=== PATIENT | female | born 1980 | race African-American/Black ===

== ENCOUNTER 2017-05-30 03:56 | Emergency (ER) | payer OTHER ==
[~2017-05-30] VITALS: Ht 149.9 cm; Wt 92.1 kg
[~2017-05-30 03:56] MED LIST: ACET325T9 PO; ACET500T33 PO; AMOX875T PO; BENZ100C PO; GUAI600T47 PO; HYDR25CA75 PO; IBUP-1007 PO; IBUP-1060 PO; LABE100T3 PO; LABE5VIA14 PO; LISI10TA2 PO; LOSA25TA4 PO; MULT-208 PO; OMEP20CA9 PO; OSEL75CA PO; OXYC-323 PO; POLY17PO29 PO; PRED50TA PO
[2017-05-30] MEDS ORDERED: ASPIRIN CHEWABLE 81 MG TABLET. PO ONE (04:15)
[2017-05-30 04:19] LABS: BASO # 0.1 x10^3/uL (0.0-0.2); BASO % 1 % (0-3); EOS % 2 % (0-3); HEMATOCRIT 40.2 % (36.0-47.0); HEMOGLOBIN 13.2 g/dL (12.0-15.5); LYMPH # 2.4 x10^3/uL (1.0-4.8); LYMPH % 46 % (24-48); MEAN CORPUSCULAR HEMOGLOBIN 28 pg (25-35); MEAN CORPUSCULAR HGB CONC 33 g/dL (31-37); MEAN CORPUSCULAR VOLUME 85 fL (79-100); MONO % 8 % (0-9); NEUT % 42 % (31-73); PLATELET COUNT 205 x10^3/uL (140-400); RED BLOOD COUNT 4.73 x10^6/uL (3.50-5.40); RED CELL DISTRIBUTION WIDTH 14.5 % (11.5-14.5); WHITE BLOOD COUNT 5.1 x10^3/uL (4.0-11.0)
--- NOTE | 2017-05-30 04:31 | PHYS DOC ---
Past Medical History Past Medical History: Fibromyalgia, Hypertension, Other Additional Past Medical Histor: sleep apnea, panic attacks Past Surgical History: Cholecystectomy, , Hysterectomy Additional Past Surgical Histo: uterine ablation Alcohol Use: None Drug Use: None Adult General Chief Complaint Chief Complaint: [facility] HPI Patient is a 36 year old female with past medical history of anxiety, hypertension and fibromyalgia presents with complaints of sided chest pain that started at approximately 1 hour and 15 minutes ago. The patient says the pain is a 1 point on her left upper chest and then another point on the side of the chest. There is no radiation, no associated symptoms like nausea, vomiting, diaphoresis or shortness of breath. The patient has been no compliant with her blood pressure medications. No history of trauma. No recent illnesses, no rashes , no fevers or chills. Review of Systems Review of Systems Constitutional: Denies fever or chills [] HENT: Denies neck pain Respiratory: Denies cough or shortness of breath [] Cardiovascular: No additional information not addressed in HPI [] GI: Denies abdominal pain, nausea, vomiting Musculoskeletal: Denies back pain or joint pain [] Integument: Denies rash or skin lesions [] Neurologic: Denies headache, focal weakness or sensory changes [] All systems are reviewed and found to be negative unless otherwise stated Current Medications Current Medications Current Medications Medications (Trade) Dose Ordered Sig/Umm Start Time Stop Time Status Last Admin Dose Admin Aspirin (Children'S Aspirin) 324 mg 1X ONCE 05/30/17 04:15 05/30/17 04:16 DC 05/30/17 04:45 324 MG Hydrochlorothiazide (Hydrodiuril) 25 mg 1X ONCE 05/30/17 05:00 05/30/17 05:01 DC Ibuprofen (Motrin) 400 mg 1X ONCE 05/30/17 05:15 05/30/17 05:16 DC 05/30/17 05:47 400 MG Lisinopril (Prinivil) 20 mg 1X ONCE 05/30/17 05:00 05/30/17 05:01 DC Metoprolol Tartrate (Lopressor) 25 mg 1X ONCE 05/30/17 05:00 05/30/17 05:01 DC Allergies Allergies Allergies Coded Allergies Type Severity Reaction Last Updated Verified No Known Drug Allergies 08/27/15 No Physical Exam Physical Exam Constitutional: Well developed, well nourished, no acute distress, non-toxic appearance. [] HENT: Normocephalic, atraumatic, nose normal. [] Eyes: EOMI, conjunctiva normal, no discharge. [] Neck: Normal range of motion, no tenderness, supple, no stridor. No LAD, no meningeal signs, no JVD Cardiovascular:Heart rate regular rhythm, no murmur, equal pulses, normal perfusion Lungs & Thorax: Bilateral breath sounds clear to auscultation, no tachypnea Abdomen: Bowel sounds normal, soft, no tenderness, no masses, no pulsatile masses. [] Skin: Warm, dry, no erythema, no rash. [] Back: No tenderness, no CVA tenderness. [] Extremities: No tenderness, no cyanosis, no clubbing, ROM intact, no edema. No signs of DVT Neurologic: Alert and oriented X 3, normal motor function, normal sensory function, no focal deficits noted. Patient ambulates with normal gait without assistance Psychologic: Affect normal, judgement normal, mood normal. [] Current Patient Data Vital Signs Vital Signs Date Time Temp Pulse Resp B/P (MAP) Pulse Ox O2 Delivery O2 Flow Rate FiO2 05/30/17 06:15 72 128/79 (95) 99 Room Air 05/30/17 04:02 99.3 18 99.3 Lab Values Laboratory Tests Test 05/30/17 04:01 05/30/17 04:25 05/30/17 06:43 White Blood Count 5.1 x10^3/uL (4.0-11.0) Red Blood Count 4.73 x10^6/uL (3.50-5.40) Hemoglobin 13.2 g/dL (12.0-15.5) Hematocrit 40.2 % (36.0-47.0) Mean Corpuscular Volume 85 fL (79-100) Mean Corpuscular Hemoglobin 28 pg (25-35) Mean Corpuscular Hemoglobin Concent 33 g/dL (31-37) Red Cell Distribution Width 14.5 % (11.5-14.5) Platelet Count 205 x10^3/uL (140-400) Neutrophils (%) (Auto) 42 % (31-73) Lymphocytes (%) (Auto) 46 % (24-48) Monocytes (%) (Auto) 8 % (0-9) Eosinophils (%) (Auto) 2 % (0-3) Basophils (%) (Auto) 1 % (0-3) Neutrophils # (Auto) 2.1 x10^3uL (1.8-7.7) Lymphocytes # (Auto) 2.4 x10^3/uL (1.0-4.8) Monocytes # (Auto) 0.4 x10^3/uL (0.0-1.1) Eosinophils # (Auto) 0.1 x10^3/uL (0.0-0.7) Basophils # (Auto) 0.1 x10^3/uL (0.0-0.2) D-Dimer (Tran) 1.13 ug/mlFEU (0.00-0.50) H Sodium Level 138 mmol/L (136-145) Potassium Level 3.9 mmol/L (3.5-5.1) Chloride Level 104 mmol/L (98-107) Carbon Dioxide Level 25 mmol/L (21-32) Anion Gap 9 (6-14) Blood Urea Nitrogen 11 mg/dL (7-20) Creatinine 0.8 mg/dL (0.6-1.0) Estimated GFR (Cockcroft-Gault) 98.2 Glucose Level 108 mg/dL (70-99) H Calcium Level 9.1 mg/dL (8.5-10.1) Troponin I Quantitative < 0.017 ng/mL (0.000-0.055) Serum Test, Qualitative Negative (NEG) Urine Opiates Screen Neg (NEG) Urine Methadone Screen Neg (NEG) Urine Barbiturates Neg (NEG) Urine Phencyclidine Screen Neg (NEG) Urine Amphetamine/Methamphetamine Neg (NEG) Urine Benzodiazepines Screen Neg (NEG) Urine Cocaine Screen Neg (NEG) Urine Cannabinoids Screen Neg (NEG) Urine Ethyl Alcohol Neg (NEG) POC Troponin I 0.00 ng/ml (<0.08) Laboratory Tests 05/30/17 04:01 Laboratory Tests 05/30/17 04:01 EKG EKG 84, sinus rhythm, no STEMI, EP interpretation at 0405 Radiology/Procedures Radiology/Procedures [] Course & Med Decision Making Course & Med Decision Making Pertinent Labs and Imaging studies reviewed. (See chart for details) 0658 pt in nad. Despite the small elevation in d-dimer I do not believe the patient has a PE clinically. the pt also clinically does not appear to have a dissection. Pt pain has resolved while in the ED and her VS improved without intervention. Pt is relaxed and in no distress awaiting second ekg and second tpn. Istat negative. 2nd ekg 65, SR, no stemi. EP interpretation at 0701 [] Baron Disclaimer Dragon Disclaimer This electronic medical record was generated, in whole or in part, using a voice recognition dictation system. Departure Departure Impression: Primary Impression: Chest pain of uncertain etiology Disposition: HOME, SELF-CARE Condition: IMPROVED Referrals: NO PCP (PCP) Patient Instructions: Chest Pain (Nonspecific) Additional Instructions: you told us you have a pcp, please follow up with them in one day for recheck and re-evaluation. if your symptoms worsen or new concerning symptoms develop please return to the ED immediately. Scripts Sucralfate (CARAFATE) 1 Gm/10 Ml Oral.susp 10 ML PO BID, #120 ML 1 Refill Prov: Gabriella ARMIJO MD 05/30/17 Gabriella ARMIJO MD May 30, 2017 04:31
[2017-05-30 04:37] LABS: CALCIUM 9.1 mg/dL (8.5-10.1); CREATININE 0.8 mg/dL (0.6-1.0); GFR 98.2; POTASSIUM 3.9 mmol/L (3.5-5.1)
[2017-05-30 04:44] LABS: BARBITURATES NEG (NEG); BENZODIAZEPINES NEG (NEG); CANNABINOIDS NEG (NEG); COCAINE NEG (NEG); METHADONE NEG (NEG); OPIATES NEG (NEG); PHENCYCLIDINE NEG (NEG)
[2017-05-30 04:45] LABS: NEG OBC SER NEG; POS OBC SER POS
[2017-05-30] MEDS ORDERED: LISINOPRIL 10 MG TABLET PO ONE (05:00)
[2017-05-30] MEDS ORDERED: METOPROLOL TART IMMED RELEASE 25 MG TABLET. PO ONE (05:00)
[2017-05-30] MEDS ORDERED: hydroCHLOROthiazide 25 MG TABLET PO ONE (05:00)
[2017-05-30] MEDS ORDERED: IBUPROFEN 400 MG TABLET. PO ONE (05:15)
--- NOTE | 2017-05-30 06:23 | EKG ---
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
[2017-05-30 06:45] VITALS: BP 143/93
[2017-05-30] MEDS ORDERED: SUCR1ORA5 PO (07:07)
--- NOTE | 2017-05-30 07:11 | EKG ---
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
--- NOTE | 2017-05-30 07:13 | RAD ---
Chest, 2 views, 05/30/2017: History: Chest pain The heart size and pulmonary vascularity are normal. No pulmonary infiltrates are seen. There is no evidence of pleural fluid. Mild spurring is present in the spine. IMPRESSION: No acute cardiopulmonary abnormality is detected.
== END 2017-05-30 07:18 | disposition home or self-care (01) ==
LOC: ER 03:56
DX: R07.89 Other chest pain (principal); I10 Essential (primary) hypertension; M79.7 Fibromyalgia; G47.30 Sleep apnea, unspecified; F41.9 Anxiety disorder, unspecified; Z90.710 Acquired absence of both cervix and uterus; Z90.49 Acquired absence of other specified parts of digestive tract; Z98.890 Other specified postprocedural states
CPT/HCPCS: 36415; 71020; 80048; 80307; 84484; 84703; 85027; 85379; 93005; 99285-25; G0479

== ENCOUNTER 2017-06-30 02:58 | Emergency (ER) | payer OTHER ==
[~2017-06-30] VITALS: Ht 149.9 cm; Wt 93.9 kg
[~2017-06-30 02:58] MED LIST changes: +SUCR1ORA5 PO
[2017-06-30 03:19] VITALS: BP 147/89
[2017-06-30 04:00] LABS: BASO # 0.1 x10^3/uL (0.0-0.2); BASO % 1 % (0-3); EOS % 1 % (0-3); HEMATOCRIT 38.5 % (36.0-47.0); HEMOGLOBIN 12.8 g/dL (12.0-15.5); LYMPH # 1.2 x10^3/uL (1.0-4.8); LYMPH % 25 % (24-48); MEAN CORPUSCULAR HEMOGLOBIN 28 pg (25-35); MEAN CORPUSCULAR HGB CONC 33 g/dL (31-37); MEAN CORPUSCULAR VOLUME 84 fL (79-100); MONO % 6 % (0-9); NEUT % 67 % (31-73); PLATELET COUNT 216 x10^3/uL (140-400); RED BLOOD COUNT 4.57 x10^6/uL (3.50-5.40); RED CELL DISTRIBUTION WIDTH 15.1 % (11.5-14.5); WHITE BLOOD COUNT 4.7 x10^3/uL (4.0-11.0)
[2017-06-30] MEDS ORDERED: diphenhydrAMINE 50 MG/ML VIAL IVP ONE (04:00)
[2017-06-30] MEDS ORDERED: MECLIZINE HCL 12.5 MG TABLET. PO ONE (04:00)
[2017-06-30] MEDS ORDERED: IV NORMAL SALINE 1000ML BAG 1,000 ML IV ONE (04:00)
[2017-06-30 04:09] LABS: CALCIUM 9.1 mg/dL (8.5-10.1); CREATININE 0.8 mg/dL (0.6-1.0); GFR 98.2; POTASSIUM 3.6 mmol/L (3.5-5.1)
--- NOTE | 2017-06-30 04:21 | RAD ---
RS Compliance Statement: One or more of the following individualized dose reduction techniques were utilized for this examination: 1. Automated exposure control 2. Adjustment of the mA and/or kV according to patient size 3. Use of iterative reconstruction technique CT HEAD WITHOUT CONTRAST History: dizziness , new onset vertigo. Comparison: None. Procedure: Axial images are obtained of the head from the skull base through the vertex without IV contrast. Findings: The ventricles and sulci are normal for the patient's age. No mass-effect, midline shift, hemorrhage, extra-axial fluid collection, or obvious acute infarction is identified. Basilar cisterns are patent. Bone windows demonstrate no acute calvarial abnormality. The visualized paranasal sinuses are clear. Mastoid air cells are well aerated. IMPRESSION: No acute intracranial abnormality. Electronically signed by: Ludwig Trent MD (06/30/2017 4:17 AM) [facility]
[2017-06-30] MEDS ORDERED: MECL12.52 PO (05:24)
--- NOTE | 2017-06-30 05:25 | PHYS DOC ---
Past Medical History Past Medical History: Fibromyalgia, Hypertension, Other Additional Past Medical Histor: sleep apnea, panic attacks Past Surgical History: Cholecystectomy, , Hysterectomy Additional Past Surgical Histo: uterine ablation Alcohol Use: None Drug Use: None Adult General Chief Complaint Chief Complaint: NAUSEA/VOMITING/DIARRHA HPI HPI 36-year-old female with no significant past medical history now presents to the emergency department after sudden onset of dizziness with room spinning. Patient was doing her activities of daily living this evening when she suddenly felt very dizzy. Room felt like it was moving and she was having difficulties with her balance. Patient experienced nausea and vomiting. It's improved when she stays still and worse when she moves her head and especially when she lays down. Patient has not taken any medication and she has never had symptoms like this before. She's never been told she had a brain tumor or experienced inner ear problems. Patient is otherwise asymptomatic and has had no prodromal illness recently. Review of Systems Review of Systems Constitutional: Denies fever or chills [] Eyes: Denies change in visual acuity, redness, or eye pain [] HENT: Denies nasal congestion or sore throat [] Respiratory: Denies cough or shortness of breath [] Cardiovascular: No additional information not addressed in HPI [] GI: Denies abdominal pain, nausea, vomiting, bloody stools or diarrhea [] : Denies dysuria or hematuria [] Musculoskeletal: Denies back pain or joint pain [] Integument: Denies rash or skin lesions [] Neurologic: Denies headache, focal weakness or sensory changes [] Endocrine: Denies polyuria or polydipsia [] Current Medications Current Medications Current Medications Medications (Trade) Dose Ordered Sig/Umm Start Time Stop Time Status Last Admin Dose Admin Diphenhydramine HCl (Benadryl) 25 mg 1X ONCE 06/30/17 04:00 06/30/17 04:01 DC 06/30/17 03:54 25 MG Meclizine HCl (Antivert) 25 mg 1X ONCE 06/30/17 04:00 06/30/17 04:01 DC 06/30/17 03:54 25 MG Sodium Chloride 1,000 ml @ 999 mls/hr 1X ONCE 06/30/17 04:00 06/30/17 05:00 DC 06/30/17 03:53 999 MLS/HR Allergies Allergies Allergies Coded Allergies Type Severity Reaction Last Updated Verified No Known Drug Allergies 08/27/15 No Physical Exam Physical Exam Well-appearing patient no acute distress remaining still with eyes closed. Dizziness reproducible with head movement and positional changes. Patient has a nonfocal neurologic exam and remainder of exam is benign Constitutional: Well developed, well nourished, no acute distress, non-toxic appearance. [] HENT: Normocephalic, atraumatic, bilateral external ears normal, oropharynx moist, no oral exudates, nose normal. [] Eyes: PERRLA, EOMI, conjunctiva normal, no discharge. [] Neck: Normal range of motion, no tenderness, supple, no stridor. [] Cardiovascular:Heart rate regular rhythm, no murmur [] Lungs & Thorax: Bilateral breath sounds clear to auscultation [] Abdomen: Bowel sounds normal, soft, no tenderness, no masses, no pulsatile masses. [] Skin: Warm, dry, no erythema, no rash. [] Back: No tenderness, no CVA tenderness. [] Extremities: No tenderness, no cyanosis, no clubbing, ROM intact, no edema. [] Neurologic: Alert and oriented X 3, normal motor function, normal sensory function, no focal deficits noted. [] Psychologic: Affect normal, judgement normal, mood normal. [] Current Patient Data Vital Signs Vital Signs Date Time Temp Pulse Resp B/P (MAP) Pulse Ox O2 Delivery O2 Flow Rate FiO2 06/30/17 03:19 98.4 67 18 147/89 (108) 100 Room Air 98.4 Lab Values Laboratory Tests Test 06/30/17 03:25 White Blood Count 4.7 x10^3/uL (4.0-11.0) Red Blood Count 4.57 x10^6/uL (3.50-5.40) Hemoglobin 12.8 g/dL (12.0-15.5) Hematocrit 38.5 % (36.0-47.0) Mean Corpuscular Volume 84 fL (79-100) Mean Corpuscular Hemoglobin 28 pg (25-35) Mean Corpuscular Hemoglobin Concent 33 g/dL (31-37) Red Cell Distribution Width 15.1 % (11.5-14.5) H Platelet Count 216 x10^3/uL (140-400) Neutrophils (%) (Auto) 67 % (31-73) Lymphocytes (%) (Auto) 25 % (24-48) Monocytes (%) (Auto) 6 % (0-9) Eosinophils (%) (Auto) 1 % (0-3) Basophils (%) (Auto) 1 % (0-3) Neutrophils # (Auto) 3.2 x10^3uL (1.8-7.7) Lymphocytes # (Auto) 1.2 x10^3/uL (1.0-4.8) Monocytes # (Auto) 0.3 x10^3/uL (0.0-1.1) Eosinophils # (Auto) 0.0 x10^3/uL (0.0-0.7) Basophils # (Auto) 0.1 x10^3/uL (0.0-0.2) Sodium Level 140 mmol/L (136-145) Potassium Level 3.6 mmol/L (3.5-5.1) Chloride Level 103 mmol/L (98-107) Carbon Dioxide Level 26 mmol/L (21-32) Anion Gap 11 (6-14) Blood Urea Nitrogen 16 mg/dL (7-20) Creatinine 0.8 mg/dL (0.6-1.0) Estimated GFR (Cockcroft-Gault) 98.2 Glucose Level 109 mg/dL (70-99) H Calcium Level 9.1 mg/dL (8.5-10.1) Troponin I Quantitative < 0.017 ng/mL (0.000-0.055) Laboratory Tests 06/30/17 03:25 Laboratory Tests 06/30/17 03:25 EKG EKG EKG Normal sinus rhythm at 76 normal axis no STEMI [] interpreted by me Radiology/Procedures Radiology/Procedures Chest x-ray no acute disease interpreted by me [] Course & Med Decision Making Course & Med Decision Making Pertinent Labs and Imaging studies reviewed. (See chart for details) Signs and symptoms consistent with peripheral vertigo and well-appearing patient his symptoms have resolved after treatment. Full workup including CT EKG chest x-ray and labs all unremarkable. No further workup or treatment indicated. Patient feels well and wants to go home. She agrees that outpatient follow-up, prescription for meclizine dispensed, and strict return precautions given [] Erma Disclaimer Dragon Disclaimer This electronic medical record was generated, in whole or in part, using a voice recognition dictation system. Departure Departure Impression: Primary Impression: Vertigo Additional Impression: Dizziness Disposition: 01 HOME, SELF-CARE Condition: IMPROVED Referrals: NO PCP (PCP) Patient Instructions: Vertigo Additional Instructions: You have vertigo. This is dizziness from dysfunction of the inner ear. Take meclizine as prescribed as needed. Be sure to take appropriate precautions if you're feeling dizzy including not driving operating machinery or putting yourself in any situation that might create danger to you or others. A very full workup today including labs CT of the head chest x-ray and EKG are all unremarkable. Follow-up with your doctor tomorrow and return immediately for new severe worsening symptoms Scripts Meclizine Hcl (MECLIZINE HCL) 12.5 Mg Tablet 1 TAB PO Q6HRS for dizziness, #30 TAB Prov: PHAN KAPLAN MD 06/30/17 Problem Qualifiers PHAN KAPLAN MD Jun 30, 2017 05:25
--- NOTE | 2017-06-30 07:18 | EKG ---
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
--- NOTE | 2017-06-30 07:32 | RAD ---
Exam performed: One view chest. Indication: DIZZINESS Date of Service: 06/30/2017 5:45 AM Comparison: None available two-view chest from 06/23/16. Single AP upright portable view chest findings: Cardiomediastinal silhouette is within limits of normal. No acute infiltrates, effusion or pneumothorax is detected. The bony structures are normal. Impression: No acute cardiopulmonary process is detected.
== END 2017-06-30 05:33 | disposition home or self-care (01) ==
LOC: ER 02:58
DX: R42 Dizziness and giddiness (principal); R11.2 Nausea with vomiting, unspecified; M79.7 Fibromyalgia; I10 Essential (primary) hypertension; G47.30 Sleep apnea, unspecified
CPT/HCPCS: 36415; 70450; 71010; 80048; 84484; 85025; 93005; 96361; 96374; 99285; J1200; J7030; J8597

== ENCOUNTER 2017-10-09 21:54 | Emergency (ER) | payer OTHER ==
[~2017-10-09] VITALS: Ht 5.1 cm; Wt 93.9 kg
[~2017-10-09 21:54] MED LIST changes: +MECL12.52 PO
--- NOTE | 2017-10-09 22:00 | PHYS DOC ---
Past Medical History Past Medical History: Fibromyalgia, Hypertension, Other Additional Past Medical Histor: sleep apnea, panic attacks Past Surgical History: Cholecystectomy, , Hysterectomy Additional Past Surgical Histo: uterine ablation Alcohol Use: None Drug Use: None Adult General Chief Complaint Chief Complaint: LOWER EXTREMITY SWELLING [facility] HPI Patient is a 37 year old -[place] female who presents with left leg pain and swelling. She states this started around 6:00 tonight. It comes and goes it's in the left thigh in the posterior aspect. She says it looks swollen to her also. She denies any shortness of breath fevers chills nausea vomiting. She also complains about intermittent bilateral posterior rib pain for the last 6 months it comes on it can last all day long and he could go away by itself. She denies any shortness of breath associated with this. 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 Review of Systems Review of Systems Constitutional: Denies fever or chills [] Eyes: Denies change in visual acuity, redness, or eye pain [] HENT: Denies nasal congestion or sore throat [] Respiratory: Denies cough or shortness of breath [] Cardiovascular: No additional information not addressed in HPI [] GI: Denies abdominal pain, nausea, vomiting, bloody stools or diarrhea [] : Denies dysuria or hematuria [] Musculoskeletal: Denies back pain or positive for left leg swelling Integument: Denies rash or skin lesions [] Neurologic: Denies headache, focal weakness or sensory changes [] Endocrine: Denies polyuria or polydipsia [] All other systems were reviewed and found to be within normal limits, except as documented in this note. Allergies Allergies Allergies Coded Allergies Type Severity Reaction Last Updated Verified No Known Drug Allergies 08/27/15 No Physical Exam Physical Exam Constitutional: Well developed, well nourished, no acute distress, non-toxic appearance. [] HENT: Normocephalic, atraumatic, bilateral external ears normal, oropharynx moist, no oral exudates, nose normal. [] Eyes: PERRLA, EOMI, conjunctiva normal, no discharge. [] Neck: Normal range of motion, no tenderness, supple, no stridor. [] Cardiovascular:Heart rate regular rhythm, no murmur [] Lungs & Thorax: Bilateral breath sounds clear to auscultation [] Abdomen: Bowel sounds normal, soft, no tenderness, no masses, no pulsatile masses. [] Skin: Warm, dry, no erythema, no rash. [] Back: No tenderness, no CVA tenderness. [] Extremities: No tenderness, no cyanosis, no clubbing, ROM intact, no edema. [] Neurologic: Alert and oriented X 3, normal motor function, normal sensory function, no focal deficits noted. [] Psychologic: Affect normal, judgement normal, mood normal. [] Current Patient Data Vital Signs Vital Signs Date Time Temp Pulse Resp B/P (MAP) Pulse Ox O2 Delivery O2 Flow Rate FiO2 10/09/17 22:16 98.5 84 20 148/96 (113) 100 Room Air 98.5 Lab Values Laboratory Tests Test 10/09/17 22:10 Urine Collection Type Unknown Urine Color Yellow Urine Clarity Clear Urine pH 6.0 Urine Specific [place] 1.015 Urine Protein Negative mg/dL (NEG-TRACE) Urine Glucose (UA) Negative mg/dL (NEG) Urine Ketones (Stick) Negative mg/dL (NEG) Urine Blood Negative (NEG) Urine Nitrite Negative (NEG) Urine Bilirubin Negative (NEG) Urine Urobilinogen Dipstick 0.2 mg/dL (0.2 mg/dL) Urine Leukocyte Esterase Negative (NEG) Urine RBC 0 /HPF (0-2) Urine WBC 0 /HPF (0-4) Urine Squamous Epithelial Cells Mod /LPF Urine Bacteria Few /HPF (0-FEW) Urine Mucus Slight /LPF Urine Test Negative (NEG) EKG EKG [] Radiology/Procedures Radiology/Procedures 2 views chest x-ray does not show any focal consolidations, bony abnormality's, pneumothorax, as interpreted by me. [facility] [address] [place], [place] [id number] IMAGING REPORT Signed PATIENT: ANIRUDH GUARDADO ACCOUNT: [id number] : 1980 LOCATION: ER AGE: 37 SEX: F EXAM STATUS: DEP ER ORD. PHYSICIAN: JENNIFER ARENAS MD REASON: swelling, pain PROCEDURE: VENOUS LOWER EXTREMITY LEFT Left lower extremity venous duplex study 10/09/2017 Clinical History: Left leg pain. Technique: Using a combination of real time ultrasound imaging and color-flow and pulse Doppler imaging techniques along with graded compression and augmentation, duplex evaluation of the deep venous system of the left lower extremity was performed. Multiple images were obtained. Findings: There is no sonographic evidence of deep venous thrombosis involving the visualized deep venous structures of left lower extremity. Impression: Negative study. Electronically signed by: Jose Guadalupe Mon MD (10/09/2017 11:41 PM) [facility] DICTATED and SIGNED BY: JOSE GUADALUPE MON MD DATE: 10/09/17 2333 CC: JENNIFER ARENAS MD; NO PCP ~ Impressions: Left leg pain Course & Med Decision Making Course & Med Decision Making Pertinent Labs and Imaging studies reviewed. (See chart for details) Physical exam, ultrasound for DVT, UA all nonacute. This could be muscle spasm or muscle cramp. We'll discharge with Flexeril. Return precautions given. Dragon Disclaimer Dragon Disclaimer This electronic medical record was generated, in whole or in part, using a voice recognition dictation system. Departure Departure Impression: Primary Impression: Leg pain Disposition: 01 HOME, SELF-CARE Condition: STABLE Referrals: NO PCP (PCP) Patient Instructions: Musculoskeletal Pain Additional Instructions: Your chest x-ray and urinalysis, in addition to the ultrasound of your left leg did not show any abnormalities. Your being discharged home. You can continue taking Advil for discomfort. You can also try Flexeril which is a muscle relaxant. Please be careful with Flexeril as it can impair your judgment and make you sleepy. These don't drive or taking Flexeril. If it makes you too sleepy, then you can take one tablet before you go to bed or break the tablets in half and take half the dose. If your pain gets worse, you have shortness of breath, your feet turn blue or purple, or you have any other concerns, please return back to emergency department. Otherwise you need follow-up with your primary care physician within the next 3-4 days. Scripts Cyclobenzaprine Hcl (CYCLOBENZAPRINE HCL) 10 Mg Tablet 1 TAB PO TID, #30 TAB Prov: JENNIFER ARENAS MD 10/09/17 JENNIFER ARENAS MD Oct 09, 2017 22:00
[2017-10-09 22:16] VITALS: BP 148/96
[2017-10-09 22:40] LABS: BILIRUBIN,URINE NEGATIVE (NEG); GLUCOSE,URINE NEGATIVE (NEG); NITRITE,URINE NEGATIVE (NEG); PROTEIN,URINE NEGATIVE (NEG-TRACE); UROBILINOGEN,URINE 0.2 mg/dL (0.2 mg/dL)
[2017-10-09 22:43] LABS: NEG OBC UR NEG; POS OBC UR POS
[2017-10-09 22:46] LABS: BACTERIA,URINE FEW /HPF (0-FEW); RBC,URINE 0 /HPF (0-2); SQUAMOUS EPITHELIAL CELL,UR MOD /LPF; WBC,URINE 0 /HPF (0-4)
[2017-10-09] MEDS ORDERED: CYCL10TA2 PO (23:13)
--- NOTE | 2017-10-09 23:44 | RAD ---
Left lower extremity venous duplex study 10/09/2017 Clinical History: Left leg pain. Technique: Using a combination of real time ultrasound imaging and color-flow and pulse Doppler imaging techniques along with graded compression and augmentation, duplex evaluation of the deep venous system of the left lower extremity was performed. Multiple images were obtained. Findings: There is no sonographic evidence of deep venous thrombosis involving the visualized deep venous structures of left lower extremity. Impression: Negative study. Electronically signed by: Jose Guadalupe Mon MD (10/09/2017 11:41 PM) [facility]
--- NOTE | 2017-10-10 08:46 | RAD ---
Indication: Pain with inspiration. Technique: Two-view chest radiograph was obtained. Comparison is from June 30, 2017. Findings: The lungs are clear. The cardiopulmonary silhouette is within normal limits. There is no pleural effusion. There are mild degenerative changes in the spine. Impression: No acute thoracic findings.
== END 2017-10-09 23:26 | disposition home or self-care (01) ==
LOC: ER 21:54
DX: M79.605 Pain in left leg (principal); R22.42 Localized swelling, mass and lump, left lower limb; I10 Essential (primary) hypertension; M79.7 Fibromyalgia; Z90.710 Acquired absence of both cervix and uterus; Z90.49 Acquired absence of other specified parts of digestive tract
CPT/HCPCS: 71020; 81001; 81025; 93971; 99285-25

== ENCOUNTER 2017-11-17 06:45 | Emergency (ER) | payer OTHER ==
[2017-11-17 07:21] LABS: URINE HCG POC HCG NEGATIVE (Negative)
[2017-11-17 07:24] LABS: BILIRUBIN,URINE NEGATIVE (NEG); CLARITY,URINE CLEAR; COLOR,URINE YELLOW; GLUCOSE,URINE NEGATIVE (NEG); NITRITE,URINE NEGATIVE (NEG); PROTEIN,URINE NEGATIVE (NEG-TRACE); UROBILINOGEN,URINE 0.2 mg/dL (0.2 mg/dL)
[2017-11-17 07:34] LABS: ADD MAN DIFF? NO
[2017-11-17 07:35] LABS: BACTERIA,URINE 0 /HPF (0-FEW); RBC,URINE 0 /HPF (0-2); SQUAMOUS EPITHELIAL CELL,UR MANY /LPF; WBC,URINE 0 /HPF (0-4)
[2017-11-17 07:49] LABS: BASO % 1 % (0-3); EOS # 0.1 x10^3/uL (0.0-0.7); EOS % 1 % (0-3); HEMATOCRIT 40.7 % (36.0-47.0); HEMOGLOBIN 13.2 g/dL (12.0-15.5); LYMPH # 1.7 x10^3/uL (1.0-4.8); LYMPH % 34 % (24-48); MEAN CORPUSCULAR HEMOGLOBIN 27 pg (25-35); MEAN CORPUSCULAR HGB CONC 33 g/dL (31-37); MEAN CORPUSCULAR VOLUME 84 fL (79-100); MONO # 0.4 x10^3/uL (0.0-1.1); MONO % 8 % (0-9); NEUT # 2.8 x10^3uL (1.8-7.7); NEUT % 56 % (31-73); PLATELET COUNT 242 x10^3/uL (140-400); RED BLOOD COUNT 4.86 x10^6/uL (3.50-5.40); RED CELL DISTRIBUTION WIDTH 14.5 % (11.5-14.5)
[2017-11-17 07:50] LABS: ANION GAP 9 (6-14); BLOOD UREA NITROGEN 12 mg/dL (7-20); BUN/CREATININE RATIO 17 (6-20); CALCIUM 9.1 mg/dL (8.5-10.1); CARBON DIOXIDE 26 mmol/L (21-32); CHLORIDE 105 mmol/L (98-107); CREATININE 0.7 mg/dL (0.6-1.0); GFR 113.9; GLUCOSE 100 mg/dL (70-99); SODIUM 140 mmol/L (136-145)
[2017-11-17 07:56] LABS: ALBUMIN 3.6 g/dL (3.4-5.0); ALK PHOS 65 U/L (46-116); ALT (SGPT) 37 U/L (14-59); AST (SGOT) 22 U/L (15-37); TOTAL BILIRUBIN 0.5 mg/dL (0.2-1.0); TOTAL PROTEIN 7.2 g/dL (6.4-8.2)
[2017-11-17 08:04] LABS: CKMB INDEX 0.7 % (0-4); CKMB MASS 0.9 ng/mL (0.0-3.6); CREATINE KINASE 124 U/L (26-192)
[2017-11-17 08:05] LABS: TROPONINI < 0.017 ng/mL (0.000-0.055)
== END 2017-11-17 08:34 | disposition home or self-care (01) ==
LOC: ER 06:45
DX: R07.89 Other chest pain (principal); Z76.0 Encounter for issue of repeat prescription; I10 Essential (primary) hypertension; M79.7 Fibromyalgia; R42 Dizziness and giddiness; R11.0 Nausea; Z90.710 Acquired absence of both cervix and uterus
CPT/HCPCS: 36415; 71046; 80053; 81001; 81025; 82553; 84484; 85025; 93005; 99285-25

== ENCOUNTER 2018-01-14 23:39 | Emergency (ER) | payer OTHER ==
[2018-01-15] MEDS: ONDANSETRON ODT 4 MG TAB.RAPDIS. PO (00:22)
[2018-01-15] MEDS: KETOROLAC 60 MG/2 ML INJ. IM (00:23)
[2018-01-15] MEDS: cloNIDine HCL 0.1 MG TABLET PO (00:24)
== END 2018-01-15 00:52 | disposition home or self-care (01) ==
LOC: ER 23:39
DX: B34.9 Viral infection, unspecified (principal); I10 Essential (primary) hypertension
CPT/HCPCS: 96372; 99283-25; J1885; Q0162

== ENCOUNTER → 2018-03-03 | Outpatient (CLI) | payer OTHER | END | disposition home or self-care (01) | LOC: KCIC US 15:10 | DX: M54.6 Pain in thoracic spine (principal) | CPT/HCPCS: 76770 ==

== ENCOUNTER 2018-05-04 16:23 | Emergency (ER) | payer OTHER | END 2018-05-04 18:09 | disposition home or self-care (01) | LOC: ER 18:09 | DX: I10 Essential (primary) hypertension (principal); Z76.0 Encounter for issue of repeat prescription; Z88.8 Allergy status to other drugs, medicaments and biological substances | CPT/HCPCS: 99283 ==

== ENCOUNTER 2018-05-10 16:13 | Emergency (ER) | payer OTHER | END 2018-05-10 17:03 | disposition home or self-care (01) | LOC: ER 16:13 | DX: R51 Headache (principal); M54.2 Cervicalgia; J02.9 Acute pharyngitis, unspecified; I10 Essential (primary) hypertension; M79.7 Fibromyalgia | CPT/HCPCS: 99283 ==

== ENCOUNTER 2019-02-20 11:31 | Emergency (ER) | payer OTHER ==
[~2019-02-20] VITALS: Ht 149.9 cm; Wt 99.8 kg
[~2019-02-20 11:31] MED LIST changes: +BUTA1CAP31 PO; +CYCL10TA2 PO; -LABE100T3 PO; +LABE100T5 PO; +LISI-338 PO; -LOSA25TA4 PO; +LOSA25TA54 PO; +OMEP20CA10 PO; -OMEP20CA9 PO; +ONDA4TAB10 SL; -OXYC-323 PO; +OXYC1TAB15 PO
[2019-02-20 11:55] LABS: BASO % 1 % (0-3); EOS % 1 % (0-3); HEMATOCRIT 39.9 % (36.0-47.0); HEMOGLOBIN 13.3 g/dL (12.0-15.5); LYMPH # 1.6 x10^3/uL (1.0-4.8); LYMPH % 38 % (24-48); MEAN CORPUSCULAR HEMOGLOBIN 28 pg (25-35); MEAN CORPUSCULAR HGB CONC 33 g/dL (31-37); MEAN CORPUSCULAR VOLUME 84 fL (79-100); MONO # 0.4 x10^3/uL (0.0-1.1); MONO % 9 % (0-9); NEUT # 2.2 x10^3uL (1.8-7.7); NEUT % 51 % (31-73); PLATELET COUNT 224 x10^3/uL (140-400); RED BLOOD COUNT 4.75 x10^6/uL (3.50-5.40); RED CELL DISTRIBUTION WIDTH 14.5 % (11.5-14.5); WHITE BLOOD COUNT 4.3 x10^3/uL (4.0-11.0)
[2019-02-20 12:10] LABS: CALCIUM 9.3 mg/dL (8.5-10.1); CREATININE 0.9 mg/dL (0.6-1.0); GFR 84.8; POTASSIUM 3.6 mmol/L (3.5-5.1)
[2019-02-20 12:16] LABS: ALBUMIN 3.7 g/dL (3.4-5.0); ALBUMIN/GLOBULIN RATIO 0.9 (1.0-1.7); TOTAL BILIRUBIN 0.4 mg/dL (0.2-1.0); TOTAL PROTEIN 7.9 g/dL (6.4-8.2)
--- NOTE | 2019-02-20 12:42 | RAD ---
AP chest x-ray without comparison for mid sternal chest pain, history of hypertension. FINDINGS: Lungs are clear. Cardiomediastinum is grossly unremarkable. No soft tissue or osseous abnormalities. IMPRESSION: 1. No acute cardiopulmonary abnormality. Electronically signed by: Darrell Lawton MD (02/20/2019 12:39 PM) [id number]
[2019-02-20 13:11] VITALS: BP 179/98
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
--- NOTE | 2019-02-20 16:01 | EKG ---
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
== END 2019-02-20 13:22 | disposition home or self-care (01) ==
LOC: ER 11:31
DX: R07.89 Other chest pain (principal); I10 Essential (primary) hypertension
CPT/HCPCS: 36415; 71045; 80053; 83880; 84484; 85025; 93005; 99285-25

== ENCOUNTER 2019-10-09 19:25 | Emergency (ER) | payer OTHER ==
[~2019-10-09] VITALS: Ht 149.9 cm; Wt 83.0 kg
[~2019-10-09 19:25] MED LIST changes: +OMEP-229 PO; -OMEP20CA10 PO
[2019-10-09 20:00] VITALS: BP 191/90
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
[2019-10-09] MEDS ORDERED: DICL50TA4 PO (22:32)
[2019-10-09] MEDS ORDERED: CYCL5TAB PO (22:32)
[2019-10-09] MEDS ORDERED: KETOROLAC 60 MG/2 ML VIAL. IM ONE (23:00)
== END 2019-10-09 22:56 | disposition home or self-care (01) ==
LOC: ER 19:25
DX: S13.4XXA Sprain of ligaments of cervical spine, initial encounter (principal); R51 Headache; I10 Essential (primary) hypertension; M79.7 Fibromyalgia; V49.49XA Driver injured in collision with other motor vehicles in traffic accident, initial encounter; Y92.488 Other paved roadways as the place of occurrence of the external cause; Y93.89 Activity, other specified; Y99.8 Other external cause status
CPT/HCPCS: 70450; 72125; 96372; 99284; J1885

== ENCOUNTER 2022-02-28 06:33 | Emergency (ER) | payer OTHER, MEDICAID ==
[~2022-02-28] VITALS: Ht 149.9 cm; Wt 97.8 kg
[~2022-02-28 06:33] MED LIST changes: +CYCL10TA19 PO; -CYCL10TA2 PO; +CYCL5TAB PO; +DICL50TA4 PO; -LISI-338 PO; +LISI10TA16 PO; -LISI10TA2 PO; +LISI5TAB15 PO; -MECL12.52 PO; +MECL12.582 PO; -OMEP-229 PO; +OMEP20CA16 PO
[2022-02-28] MEDS ORDERED: ASPIRIN CHEWABLE 81 MG TABLET. PO ONE (06:45)
[2022-02-28 07:04] LABS: BASO # 0.1 x10^3/uL (0.0-0.2); BASO % 1 % (0-3); EOS # 0.1 x10^3/uL (0.0-0.7); EOS % 2 % (0-3); GFR 73.9; HEMATOCRIT 38.2 % (36.0-47.0); HEMOGLOBIN 12.5 g/dL (12.0-15.5); LYMPH # 2.4 x10^3/uL (1.0-4.8); LYMPH % 46 % (24-48); MEAN CORPUSCULAR HEMOGLOBIN 28 pg (25-35); MEAN CORPUSCULAR HGB CONC 33 g/dL (31-37); MEAN CORPUSCULAR VOLUME 85 fL (79-100); MONO # 0.5 x10^3/uL (0.0-1.1); MONO % 10 % (0-9); NEUT # 2.1 x10^3/uL (1.8-7.7); NEUT % 41 % (31-73); PLATELET COUNT 289 x10^3/uL (140-400); POTASSIUM 3.1 mmol/L (3.5-5.1); RED CELL DISTRIBUTION WIDTH 14.8 % (11.5-14.5); WHITE BLOOD COUNT 5.2 x10^3/uL (4.0-11.0)
[2022-02-28 07:10] LABS: ALBUMIN 3.5 g/dL (3.4-5.0); ALBUMIN/GLOBULIN RATIO 0.8 (1.0-1.7); MAGNESIUM 1.9 mg/dL (1.8-2.4); TOTAL BILIRUBIN 0.2 mg/dL (0.2-1.0); TOTAL PROTEIN 7.8 g/dL (6.4-8.2)
--- NOTE | 2022-02-28 07:23 | RAD ---
XR CHEST 1V INDICATION: chest tightness . COMPARISON STUDY: 02/20/2019. FINDINGS: Lungs: Normal lung volume. No pulmonary mass or consolidation. The tracheobronchial tree and hilar st ructures are normal. Pleura: No pleural effusion or pneumothorax. Heart and Mediastinum: The cardiomediastinal silhouette is normal. The great vessels of the thorax ar e normal. Bones and Soft Tissues: The bones and soft tissues are within normal limits. IMPRESSION: No acute cardiopulmonary process. Electronically signed by: Ld Rdoriguez MD (02/28/2022 7:21 AM) [facility]
[2022-02-28] MEDS ORDERED: IOHEXOL 350 MG/ML 100 ML VIAL. IV ONE (07:45)
[2022-02-28] MEDS ORDERED: POTASSIUM CHLORIDE 20 MEQ TABLET.ER. PO ONE (08:00)
--- NOTE | 2022-02-28 08:04 | RAD ---
CTA CHEST INDICATION: tachycardia, lightheaded, elevated ddimer Comparison: Chest radiograph 02/28/2022. TECHNIQUE: Following the uneventful administration of intravenous contrast, 100 cc Omnipaque 350, axi al CT sections were obtained through the lungs and upper abdomen. Multiplanar reconstructions and MIP images were obtained. RS compliance statement: One or more of the following individualized dose reduction techniques were utilized for this examinat ion: 1. Automated exposure control 2. Adjustment of the mA and/or kV according to patient size 3. Use of iterative reconstruction technique FINDINGS: Pulmonary arteries: No evidence of pulmonary thromboembolic disease Lungs and Airways: No pulmonary mass or consolidation. Calcified pulmonary granulomas. No abnormality of the central airways. Pleura: The pleural spaces are normal. Heart and Mediastinum: The visualized thyroid is normal in size and attenuation. No axillary or supra clavicular lymphadenopathy. No mediastinal, hilar or retrocrural lymphadenopathy. Calcified mediastin al lymph nodes consistent with remote granulomatous disease. The heart and pericardium are within nor mal limits. The great vessels of the thorax are normal. Abdomen: Cholecystectomy. Bones and Soft Tissues: Degenerative changes of the spine. IMPRESSION: 1. No evidence of pulmonary thromboembolic disease. 2. No pulmonary mass or consolidation. Electronically signed by: Ld Rodriguez MD (02/28/2022 8:02 AM) [facility]
[2022-02-28] MEDS ORDERED: IV NORMAL SALINE 1000ML BAG 1,000 ML IV ONE (08:30)
[2022-02-28 08:45] LABS: BACTERIA,URINE FEW /HPF (0-FEW); RBC,URINE 0 /HPF (0-2)
--- NOTE | 2022-02-28 09:13 | PHYS DOC ---
Past Medical History Past Medical History: Hypertension Additional Past Medical Histor: FIBROMYALGIA, PANIC ATTACKS Past Surgical History: Cholecystectomy, , Hysterectomy Additional Past Surgical Histo: uterine ablation Smoking Status: Never Smoker Alcohol Use: None Drug Use: None General Adult EDM: Chief Complaint: MULTIPLE COMPLAINTS HPI: HPI: Patient is a 41 year old F with PMH of panic attacks who presents with lightheadedness, tachycardia, and shortness of breath. Patient states that she woke up and became lightheaded upon standing, she states that lightheadedness resolved after a few seconds while she was using the restroom. Patient states that the lightheadedness seemed to persist after moving around her house and she called the ambulance due to increasing shortness of breath which started to build with her symptoms. Patient states that she does feel anxious, she does not have a history of CAD or ACS. No other associated manifestations. Review of Systems: Review of Systems: Constitutional: Denies fever or chills. [] Eyes: Denies change in visual acuity. [] HENT: Denies nasal congestion or sore throat. [] Respiratory: Denies cough + intermittent shortness of breath. [] Cardiovascular: Denies chest pain or edema. [] GI: Denies abdominal pain, nausea, vomiting, bloody stools or diarrhea. [] : Denies dysuria. [] Musculoskeletal: Denies back pain or joint pain. [] Integument: Denies rash. [] Neurologic: Denies headache, focal weakness or sensory changes. [] Endocrine: Denies polyuria or polydipsia. [] Lymphatic: Denies swollen glands. [] Psychiatric: Denies depression or anxiety. [] Heart Score: C/O Chest Pain: Yes HEART Score for Chest Pain: HEART Score for Chest Pain Response (Comments) Value History Slighlty/Non-Suspicious 0 ECG Normal 0 Age < 45 0 Risk Factors No Risk Factors 0 Troponin < Normal Limit 0 Total 0 Risk Factors: Risk Factors: obesity. Risk Scores: Score 0 - 3: 2.5% MACE over next 6 weeks - Discharge Home Current Medications: Current Medications Medications (Trade) Dose Ordered Sig/Umm Start Time Stop Time Status Last Admin Dose Admin Aspirin (Aspirin Chewable) 324 mg 1X ONCE 02/28/22 06:45 02/28/22 06:46 DC 02/28/22 08:27 324 MG Iohexol (Omnipaque 350 Mg/ml) 100 ml 1X ONCE 02/28/22 07:45 02/28/22 07:46 DC 02/28/22 07:57 100 ML Potassium Chloride (Klor-Con) 20 meq 1X ONCE 02/28/22 08:00 02/28/22 08:14 DC 02/28/22 08:27 20 MEQ Sodium Chloride 1,000 ml @ 1,000 mls/hr 1X ONCE 02/28/22 08:30 02/28/22 09:29 02/28/22 08:31 1,000 MLS/HR Allergies: Allergies: Allergies Coded Allergies Type Severity Reaction Last Updated Verified No Known Drug Allergies 02/28/22 No Physical Exam: PE: Constitutional: Well developed, well nourished, no acute distress, non-toxic appearance. [] HENT: Normocephalic, atraumatic, bilateral external ears normal, oropharynx moist, no oral exudates, nose normal. [] Eyes: PERRLA, EOMI, conjunctiva normal, no discharge. [] Neck: Normal range of motion, no tenderness, supple, no stridor. [] Cardiovascular: Tachycardia intermittently, no murmur [] Lungs & Thorax: Bilateral breath sounds clear to auscultation [] Abdomen: Bowel sounds normal, soft, no tenderness, no masses, no pulsatile masses. [] Skin: Warm, dry, no erythema, no rash. [] Back: No tenderness, no CVA tenderness. [] Extremities: No tenderness, no cyanosis, no clubbing, ROM intact, no edema. [] Neurologic: Alert and oriented X 3, normal motor function, normal sensory function, no focal deficits noted. [] Psychologic: Affect normal, judgement normal, mood normal. [] Current Patient Data: Labs: Laboratory Tests Test 02/28/22 06:44 02/28/22 07:30 White Blood Count 5.2 x10^3/uL (4.0-11.0) Red Blood Count 4.50 x10^6/uL (3.50-5.40) Hemoglobin 12.5 g/dL (12.0-15.5) Hematocrit 38.2 % (36.0-47.0) Mean Corpuscular Volume 85 fL (79-100) Mean Corpuscular Hemoglobin 28 pg (25-35) Mean Corpuscular Hemoglobin Concent 33 g/dL (31-37) Red Cell Distribution Width 14.8 % (11.5-14.5) H Platelet Count 289 x10^3/uL (140-400) Neutrophils (%) (Auto) 41 % (31-73) Lymphocytes (%) (Auto) 46 % (24-48) Monocytes (%) (Auto) 10 % (0-9) H Eosinophils (%) (Auto) 2 % (0-3) Basophils (%) (Auto) 1 % (0-3) Neutrophils # (Auto) 2.1 x10^3/uL (1.8-7.7) Lymphocytes # (Auto) 2.4 x10^3/uL (1.0-4.8) Monocytes # (Auto) 0.5 x10^3/uL (0.0-1.1) Eosinophils # (Auto) 0.1 x10^3/uL (0.0-0.7) Basophils # (Auto) 0.1 x10^3/uL (0.0-0.2) D-Dimer (Tran) 0.70 ug/mlFEU (0.00-0.50) H Sodium Level 141 mmol/L (136-145) Potassium Level 3.1 mmol/L (3.5-5.1) L Chloride Level 104 mmol/L (98-107) Carbon Dioxide Level 27 mmol/L (21-32) Anion Gap 10 (6-14) Blood Urea Nitrogen 17 mg/dL (7-20) Creatinine 1.0 mg/dL (0.6-1.0) Estimated GFR (Cockcroft-Gault) 73.9 BUN/Creatinine Ratio 17 (6-20) Glucose Level 155 mg/dL (70-99) H Calcium Level 9.0 mg/dL (8.5-10.1) Magnesium Level 1.9 mg/dL (1.8-2.4) Total Bilirubin 0.2 mg/dL (0.2-1.0) Aspartate Amino Transferase (AST) 20 U/L (15-37) Alanine Aminotransferase (ALT) 36 U/L (14-59) Alkaline Phosphatase 66 U/L (46-116) Troponin I High Sensitivity 7 ng/L (4-50) Total Protein 7.8 g/dL (6.4-8.2) Albumin 3.5 g/dL (3.4-5.0) Albumin/Globulin Ratio 0.8 (1.0-1.7) L Lipase 108 U/L (73-393) Urine Collection Type Void Urine Color (Auto) Light yellow Urine Turbidity Hazy Urine pH (Auto) 5.0 (<5.0-8.0) Urine Specific [place] 1.013 (1.000-1.030) Urine Protein (Auto) Negative mg/dL (Negative) Urine Glucose (Auto)(UA) Negative mg/dL (Negative) Urine Ketones (Auto) Negative mg/dL (Negative) Urine Blood (Auto) Negative (Negative) Urine Nitrite (Auto) Negative (Negative) Urine Bilirubin (Auto) Negative (Negative) Urine Urobilinogen (Auto) Normal mg/dL (Normal) Urine Leukocyte Esterase (Auto) Negative (Negative) Urine RBC 0 /HPF (0-2) Urine WBC 1-4 /HPF (0-4) Urine Squamous Epithelial Cells Many /LPF Urine Bacteria Few /HPF (0-FEW) Laboratory Tests 02/28/22 06:44 Laboratory Tests 02/28/22 06:44 Vital Signs: Vital Signs Date Time Temp Pulse Resp B/P (MAP) Pulse Ox O2 Delivery O2 Flow Rate FiO2 02/28/22 06:33 98.4 98 20 108/55 (72) 100 Room Air 98.4 EKG: EKG: Sinus tachycardia Radiology/Procedures: Radiology/Procedures: CT angio scan of the chest and chest x-ray within normal limits Impression: Lightheadedness Course & Med Decision Making: Course & Med Decision Making Pertinent Labs and Imaging studies reviewed. (See chart for details) Seen and evaluated by myself. Patient slightly tachycardic. Patient states that she is anxious and has a history of panic attacks. Patient without concerning symptoms for [place]. Patient states that she is feeling more calm and at baseline. Labs, except for D-dimer, chest x-ray and CT scan within normal limits. No concern for blood clot. No concern for ACS. No signs of infection. Patient was given 1 L bolus. Patient returned to baseline and asymptomatic after fluids. Patient was discharged home. Discussed plan of action with the patient. Patient will follow-up with primary care physician in 1 to 2 weeks. All questions answered, hemodynamically stable at the time of discharge. Dragon Disclaimer: Dragon Disclaimer: This electronic medical record was generated, in whole or in part, using a voice recognition dictation system. Departure Departure Referrals: UNKNOWN PCP NAME (PCP) ALMA RING MD February 28, 2022 09:13
[2022-02-28 09:26] VITALS: BP 154/98
--- NOTE | 2022-03-01 05:59 | EKG ---
[facility] [address] [place] [address] Test Date: 2022-02-28 Test Time: 06:40:33 Pat Name: ANIRUDH GUARDADO Department: Room: Gender: F [employer] Developer: : 1980 Requested By: ALMA Shah Number: [id number] Reading MD: Measurements Intervals [place] Rate: 106 P: 178 MO: 116 QRS: 33 QRSD: 96 T: 37 QT: 356 QTc: 475 Interpretive Statements SINUS TACHYCARDIA NO SPECIFIC ECG ABNORMALITIES RI6.01 No previous ECG available for comparison
== END 2022-02-28 09:26 | disposition home or self-care (01) ==
LOC: ER 06:33
DX: R42 Dizziness and giddiness (principal); R06.02 Shortness of breath; R00.0 Tachycardia, unspecified; I10 Essential (primary) hypertension
CPT/HCPCS: 36415; 71045; 71275; 80053; 81001; 83690; 83735; 84484; 85025; 85379; 93005; 96361; 96374; 99285; J7030; Q9967